=== PATIENT | male | born 1975 | race Caucasian/White ===

== ENCOUNTER 2025-05-09 14:08 | Outpatient (CLI) | payer BC ==
[2025-05-09 15:00] LABS: #Basophils 0.04 10x3/uL (0.0-0.2); #Eosinophils 0.19 10x3/uL (0.0-0.7); #Monocytes 0.45 10x3/uL (0.11-0.59); #Neutrophils 5.87 10x3/uL (1.40-6.50); %Basophils 0.5 % (0.0-1.0); %Eosinophils 2.4 % (0.0-10.0); %Lymphocytes 16.5 % (21.0-51.0); %Monocytes 5.7 % (0.0-10.0); %Neutrophils 74.3 % (42.0-75.0); Hematocrit 43.4 % (42.0-52.0); Hemoglobin 13.8 g/dL (14.0-18.0); Mean Corpuscular Hemoglobin 30.3 pg (27.0-31.0); Mean Corpuscular Volume 95.2 fL (78.0-98.0); Platelet Count 197 10x3/uL (130-400); Red Blood Cell (RBC) Count 4.56 mill/uL (4.70-6.10); White Blood Cell (WBC) Count 7.90 10x3/uL (4.8-10.8)
[2025-05-09 15:16] LABS: ALT (SGPT) 25 U/L (Less than 45); AST (SGOT) 22 U/L (11-34); Albumin 4.1 g/dL (3.1-4.5); Alkaline Phosphatase 62 U/L (40-110); Anion Gap 9 mmol/L (10-20); BUN (Urea Nitrogen) 16 mg/dL (8.9-20.6); Bilirubin, Total 0.6 mg/dL (0.3-1.2); Calc. Creatinine Clearance 0 mL/min (70-130); Calcium 9.4 mg/dL (7.8-10.44); Carbon Dioxide 30 mmol/L (22-29); Chloride 102 mmol/L (98-107); Globulin 3.0 g/dL (2.4-3.5); Glucose 99 mg/dL (70-105); Potassium 3.9 mmol/L (3.5-5.1); Sodium 137 mmol/L (136-145)
== END 2025-05-09 14:09 | disposition home or self-care (01) ==
LOC: LABBT 14:08
PROVIDERS: ATTEND Surgery
DX: Z01.812 Encounter for preprocedural laboratory examination (principal); E66.01 Morbid (severe) obesity due to excess calories
CPT/HCPCS: 80053; 83036; 85025

== ENCOUNTER 2025-05-16 05:50 | Inpatient (IN) | payer BC ==
[2025-05-16] MEDS ORDERED: Ketorolac Tromethamine 30 MG (1 mL) VIAL ONE (06:17)
[2025-05-16] MEDS ORDERED: Acetaminophen 500 MG TAB ONE (06:17)
[2025-05-16] MEDS ORDERED: Heparin 5,000 UNITS/ML VIAL ONE (06:18)
[2025-05-16] MEDS ORDERED: fentaNYL PF 100 MCG/2 ML SYRINGE ONE ×3 (06:59→10:46)
[2025-05-16] MEDS ORDERED: PROPOFOL 0 ML ONE (07:00)
[2025-05-16] MEDS ORDERED: Bupivacaine 0.25% HCL 30 ML VIAL ONE (07:01)
[2025-05-16] MEDS ORDERED: Lidocaine 1% PF 5 ML VIAL ONE (07:03)
[2025-05-16] MEDS ORDERED: Rocuronium Bromide 10 MG/ML (10ML VIAL) ONE ×2 (07:03→08:40)
[2025-05-16] MEDS ORDERED: CEFAZOLIN 2 GM VIAL ONE (07:20)
[2025-05-16] MEDS ORDERED: PROPOFOL 20 ML ONE ×4 (08:26→09:31)
[2025-05-16] MEDS ORDERED: Ondansetron PF 4 MG/2 ML Vial ONE (09:41)
[2025-05-16] MEDS ORDERED: SUGAMMADEX SODIUM 200 MG/2 ML VIAL ONE ×2 (09:42→09:49)
[2025-05-16] MEDS ORDERED: ALPRAZolam 0.5 MG TAB PO PRN (10:19)
[2025-05-16] MEDS ORDERED: hydrALAZINE 20 MG/ML VIAL SLOW IVP PRN (10:19)
[2025-05-16] MEDS ORDERED: Glucagon 1 MG/ML KIT IM PRN (10:19)
[2025-05-16] MEDS ORDERED: Dextrose 50% Abboject 50 ML SYRINGE SLOW IVP PRN (10:19)
[2025-05-16] MEDS ORDERED: diphenhydrAMINE 50 MG/ML VIAL IVP PRN (10:19)
[2025-05-16] MEDS: oxyCODONE 5 MG TAB PO PRN (11:58)
[2025-05-16] MEDS: D5 1/2 NS w/20 mEq KCL 1,000 ML IV SCH (11:58)
[2025-05-16 12:44] VITALS: BMI 34.9
[2025-05-16] MEDS: Sertraline 100 MG TAB PO SCH (20:15)
[2025-05-16] MEDS: Ondansetron PF 4 MG/2 ML Vial IVP PRN (20:23)
[2025-05-17 05:42] LABS: #Basophils Less than 0.03 10x3/uL (0.0-0.2); #Eosinophils Less than 0.03 10x3/uL (0.0-0.7); #Monocytes 0.87 10x3/uL (0.11-0.59); #Neutrophils 10.56 10x3/uL (1.40-6.50); %Basophils 0.2 % (0.0-1.0); %Eosinophils 0.1 % (0.0-10.0); %Lymphocytes 10.2 % (21.0-51.0); %Monocytes 6.8 % (0.0-10.0); %Neutrophils 82.4 % (42.0-75.0); Hematocrit 41.5 % (42.0-52.0); Hemoglobin 12.9 g/dL (14.0-18.0); Mean Corpuscular Hemoglobin 30.0 pg (27.0-31.0); Mean Corpuscular Volume 96.5 fL (78.0-98.0); Platelet Count 188 10x3/uL (130-400); Red Blood Cell (RBC) Count 4.30 mill/uL (4.70-6.10); White Blood Cell (WBC) Count 12.81 10x3/uL (4.8-10.8)
[2025-05-17 06:16] LABS: Anion Gap 13 mmol/L (10-20); BUN (Urea Nitrogen) 10 mg/dL (8.9-20.6); Calc. Creatinine Clearance 148 mL/min (70-130); Calcium 8.8 mg/dL (7.8-10.44); Carbon Dioxide 26 mmol/L (22-29); Chloride 109 mmol/L (98-107); Glucose 106 mg/dL (70-105); Potassium 4.6 mmol/L (3.5-5.1); Sodium 143 mmol/L (136-145)
[2025-05-17 09:07] VITALS: BP 133/69; TEMP 97.8
[2025-05-17] MEDS: Enoxaparin 40 MG (0.4 mL) SYRINGE SC SCH (09:23)
[2025-05-17] MEDS: Pantoprazole 40 MG VIAL IVP SCH (09:23)
== END 2025-05-17 10:40 | disposition home or self-care (01) | DRG 621 ==
LOC: SDC 05:50 → SURG B 11:38
PROVIDERS: ADMIT Surgery; ATTEND Surgery
PROC: 8E0W4CZ Robotic Assisted Procedure of Trunk Region, Percutaneous Endoscopic Approach (ICD-10-PCS; principal; 2025-05-16)
PROC: 0D164ZA Bypass Stomach to Jejunum, Percutaneous Endoscopic Approach (ICD-10-PCS; principal; 2025-05-16)
DX: E66.01 Morbid (severe) obesity due to excess calories (principal); E03.9 Hypothyroidism, unspecified; E78.5 Hyperlipidemia, unspecified; G47.33 Obstructive sleep apnea (adult) (pediatric); F41.9 Anxiety disorder, unspecified; Z68.35 Body mass index [BMI] 35.0-35.9, adult
CPT/HCPCS: 36415; 80048; 85025; J0169; J0665; J1100; J1644; J1650; J1885; J2405; J2470; J2704; J3010; J3480; S2900